=== PATIENT | female | born 1970 | race Caucasian/White ===

== ENCOUNTER → 2020-05-07 09:31 | Outpatient (BNVA) | payer OTHER, SELFPAY | PROVIDERS: Visit Provider Internal Medicine | DX: S67.192A Crushing injury of right middle finger, initial encounter (principal); X58.XXXA Exposure to other specified factors, initial encounter | CPT/HCPCS: 73130; 99203 ==

== ENCOUNTER → 2020-05-10 08:50 | Outpatient (BNVA) | payer OTHER, SELFPAY | PROVIDERS: Visit Provider Physician Assistant Medical | DX: S67.192A Crushing injury of right middle finger, initial encounter (principal); X58.XXXA Exposure to other specified factors, initial encounter | CPT/HCPCS: 99213 ==

== ENCOUNTER → 2020-05-21 13:40 | Outpatient (BNVA) | payer OTHER, SELFPAY | PROVIDERS: Visit Provider Physician Assistant Medical | DX: S60.412A Abrasion of right middle finger, initial encounter (principal); W23.0XXA Caught, crushed, jammed, or pinched between moving objects, initial encounter; L03.011 Cellulitis of right finger | CPT/HCPCS: 99213 ==

== ENCOUNTER → 2020-05-28 09:40 | Outpatient (BNVA) | payer OTHER, SELFPAY | PROVIDERS: PCP Internal Medicine; Visit Provider Physician Assistant Medical | DX: S60.412A Abrasion of right middle finger, initial encounter (principal); S67.192A Crushing injury of right middle finger, initial encounter; X58.XXXA Exposure to other specified factors, initial encounter; L03.011 Cellulitis of right finger | CPT/HCPCS: 99213 ==

== ENCOUNTER 2020-05-31 09:00 | Outpatient (RCR) | payer OTHER, SELFPAY ==
--- NOTE | 2020-05-31 09:39 | MHC.OT.EP ---
[address] [phone] Occupational Therapy Plan of Care Date of Evaluation: 05/31/20 Diagnosis: RIGHT D3 CRUSH/LIGAMENT INJURY Assessment: Pt IS A 50 YO FEMALE 4 WKS S/P R MF CRUSH INJURY WITH A SMALL DORSAL ABRASION . Pt DEVELOPED WORSENING PAIN WITH INFECTION REQUIRING ANTIBIOTIC TREATMENT STARTED LAST WEEK WITH IMPROVEMENT IN PAIN AND ROM. TODAY SHE PRESENTS WITH DEC DB2 DEVELOPER STRENGTH DUE TO LOW PAIN WITH GRIPPING. VERY SLIGHT EDEMA NOTED. SHE IS USING HER RIGHT HAND WITH DAILY ACTIVITIES I ANTICIPATE CON'T IMPROVEMENT WITH A SHORT COURSE OF OT. Frequency and Duration: The patient will be seen 1-2X WK X 3 WKS Short Term Goals: DEMO INC EASE WITH AROM EX AND DAILY ACTIVITIES. MET QUICK DASH < 10 PTS MET REPORT SLEEP UNDISRUPTED BY MF PAIN MET R DB2 DEVELOPER TO 60 LB MET Fun House Operator Goals: SAME ABOVE Treatment Plan: Therapeutic Exercise Therapeutic Activity Home Exercise Program Patient Education Edema Control Kinesiotaping Electronically Signed By: YAQUELIN KINSEY OT CHT CLT Please Sign and return to therapist. Thank you once again for your referral.
== END 2020-08-31 16:23 | disposition other institution (70) ==
LOC: HO.OT 09:00
PROVIDERS: PCP Internal Medicine; Visit Provider Physician Assistant Medical
DX: S67.192D Crushing injury of right middle finger, subsequent encounter (principal); S63.612D Unspecified sprain of right middle finger, subsequent encounter
CPT/HCPCS: 97110; 97140; 97165

== ENCOUNTER → 2020-06-11 07:44 | Outpatient (BNVA) | payer OTHER, SELFPAY | PROVIDERS: PCP Internal Medicine; Visit Provider Physician Assistant Medical | DX: S67.192D Crushing injury of right middle finger, subsequent encounter (principal); S63.692D Other sprain of right middle finger, subsequent encounter; X58.XXXD Exposure to other specified factors, subsequent encounter | CPT/HCPCS: 99213 ==

== ENCOUNTER → 2021-07-30 07:31 | Outpatient (BNVA) | payer OTHER, SELFPAY | PROVIDERS: PCP Internal Medicine; Visit Provider Internal Medicine | DX: T22.212A Burn of second degree of left forearm, initial encounter (principal); X08.8XXA Exposure to other specified smoke, fire and flames, initial encounter | CPT/HCPCS: 99203 ==

== ENCOUNTER → 2021-08-01 07:51 | Outpatient (BNVA) | payer OTHER, SELFPAY | PROVIDERS: PCP Internal Medicine; Visit Provider Internal Medicine | DX: T22.212D Burn of second degree of left forearm, subsequent encounter (principal); X08.8XXD Exposure to other specified smoke, fire and flames, subsequent encounter | CPT/HCPCS: 99214 ==

== ENCOUNTER → 2021-08-05 07:52 | Outpatient (BNVA) | payer OTHER, SELFPAY | PROVIDERS: PCP Internal Medicine; Visit Provider Internal Medicine | DX: T22.212D Burn of second degree of left forearm, subsequent encounter (principal); X08.8XXD Exposure to other specified smoke, fire and flames, subsequent encounter | CPT/HCPCS: 99213 ==

== ENCOUNTER → 2021-08-08 08:05 | Outpatient (BNVA) | payer OTHER, SELFPAY | PROVIDERS: PCP Internal Medicine; Visit Provider Internal Medicine | DX: T22.212D Burn of second degree of left forearm, subsequent encounter (principal); X08.8XXD Exposure to other specified smoke, fire and flames, subsequent encounter | CPT/HCPCS: 99213 ==